=== PATIENT | female | born 1985 | race Caucasian/White ===

== ENCOUNTER 2017-08-07 14:34 | Emergency (ER) | payer MEDICAID ==
[~2017-08-07] VITALS: Ht 167.6 cm; Wt 147.9 kg
[2017-08-07] MEDS ORDERED: NKM (14:48)
[2017-08-07 14:53] VITALS: BP 165/91
[2017-08-07] MEDS ORDERED: Fluorescein Strips RIGHT EYE ONE ×2 (15:15→15:30)
[2017-08-07] MEDS ORDERED: Tetracaine 0.5% Opth 4ml Soln RIGHT EYE ONE (15:15)
--- NOTE | 2017-08-07 15:18 | Emergency Room Report ---
History of Present Illness General Chief Complaint: Multiple Trauma/Fall Source: Patient Present Illness HPI 32 yo female patient presents to ER s/p fall complaining of left foot and right eye pain. Patient reports fall was mechanical while going down steps at home; denies LOC, dizziness, syncope. Patient complains of left foot foot pain. States she rested, iced, and took motrin for pain symptoms with mild relief. Patient states she is able to ambulate. Patient also states when she fell a "plant stick hit [her] in the eye". Patient complains of decreased vision in both eyes. States she has history of difficulty objects at a distance. Patient complains of pain foreign body sensation in right eye. Patient denies use of contact lenses or glasses. Patient denies loss of vision, fever, chest pain, shortness of breath, nausea, vomiting. Patient states she is up to date on tetanus vaccination. Allergies: Coded Allergies: No Known Allergies (Unverified , 08/07/17) Patient History Social History: Denies: smoking, alcohol use, drug use Last Menstrual Period: 1 week ago Immunizations: UTD Reviewed Nursing Documentation: PMH: Agreed, PSxH: Agreed Nursing Documentation-PMH Past Medical History: No History, Except For Review of Systems All Other Systems: negative except mentioned in HPI Physical Exam Vital Signs Date Time Temp Pulse Resp B/P (MAP) Pulse Ox O2 Delivery O2 Flow Rate FiO2 08/07/17 14:42 97.9 80 16 165/91 99 Room Air Sp02 EP Interpretation: reviewed, normal General Appearance: no apparent distress, alert, GCS 15, non-toxic Eyes: right eye fluoroscene uptake - 3 mm abrasion in 2 o'clock position extending outward from pupil, right eye Scleral Injection - medially, bilateral eye PERRL, bilateral eye EOMI, bilateral eye visual acuity - 20/100 ENT: hearing grossly normal, normal pharynx, no angioedema, normal voice, TMs + canals normal, uvula midline Neck: full range of motion, supple/symm/no masses Respiratory: chest non-tender, lungs clear, normal breath sounds, no respiratory distress, no wheezing, speaking full sentences Cardiovascular #1: regular rate, rhythm Cardiovascular #2: 2+ dorsalis pedis (R), 2+ dorsalis pedis (L) Musculoskeletal: digits/nails normal, normal range of motion - able to wiggle toes, plantar flexion and is in a, decreased range of motion - secondary to pain with ankle dorsiflexion and eversion, swelling - mild swelling along first MTP of left foot, other - NVI, tender - along first MTP Neurologic: alert, oriented x3, responsive, sensory intact, abnormal gait - secondary to pain Psychiatric: mood/affect normal Skin: normal color, no rash, warm/dry, well hydrated, other - right upper eyelid: 1-2cm linear ecchmosis along medial aspect of eyelid, TTP Medical Decision Making PA Attestation Dr. Rodriguez is my supervising Physician whom patient management has been discussed with. Diagnostic Impression: Primary Impression: Corneal abrasion, right Additional Impression: Left foot pain ER Course Pt. presents to the ED c/o right eye pain and left ankle pain. Ddx considered but are not limited to FB in eye, corneal abrasion, corneal ulcer , subconjunctival hemorrhage. Ddx considered but are not limited to fracture, sprain, strain, contusion. VA 20/100 in eyes bilaterally per nursing report. ORDERS: Ophthalmic Tetracaine. Fluorescein stain of both eyes performed. 1-2mm abrasion seen in right eye at 2 o'clock position. ED INTERVENTIONS: An x-ray of the left foot was ordered, results show no acute fracture, per the preliminary reading. [place] wrap was provided to the left foot. The affected foot was checked afterwards by me showing good alignment and support with distal neurovascular functioning intact. Crutches provided per patient request. ER COURSE -Dr. Hernandez called for Ophtho consult. Dr. Hernandez reports to ER at 1600PM -Dr. Hernandez confirmed appearance of corneal abrasion in right eye. -Visual acuity performed by Dr. Hernandez. Recommended followup for evaluation for prescription glasses to improve vision. - Ophthalmology treatment and follow-up plan discussed with patient. Patient understands and agrees to treatment. -Ortho treatment and plan discussed with patient. Patient understands and agrees to treatment. DISCHARGE: - Rx provided for Vigamox and Erythromycin ointment per Dr. Hernandez consultation. Use as directed. - Rx provided for Acetaminophen for pain symptoms At this time pt. is stable for d/c to home. Will provide printed patient care instructions and any necessary prescriptions. Care plan and follow up instructions have been discussed with the patient prior to discharge Follow-up with pricing supervisor at schedule appointment on Wednesday. Contact card for Dr. Hernandez provided to patient. Take medications as directed. Patient instructed to follow with primary care provider in 3 - 5 days and to request further orthopedic follow-up. Patient instructed on RICE method: rest, ice, compression, elevation. Patient instructed to WBAT. Take medications as directed. Patient questions asked and answered. ER precautions given, patient instructed to return to ER immediately for any new or worsening of symptoms. Last Vital Signs Date Time Temp Pulse Resp B/P (MAP) Pulse Ox O2 Delivery O2 Flow Rate FiO2 08/07/17 14:53 97.9 86 16 165/91 99 Room Air Disposition: HOME, SELF-CARE Condition: Stable Scripts Erythromycin Base (ERYTHROMYCIN*) 3.5 Gm Oint...g. 1 APPLIC RIGHT EYE QHS, #3.5 GM 0 Refills Prov: Elvis Shea 08/07/17 Moxifloxacin HCl (Vigamox) 3 Ml Drops 1 DROP RIGHT EYE q2 hours while awake for 2 Days, #3 ML 0 Refills Prov: Elvis Shea 08/07/17 Acetaminophen* (ACETAMINOPHEN 325MG TABLET*) 325 Mg Tablet 650 MG ORAL Q6H Y for For Pain for 7 Days, #30 TAB Prov: Elvis Shea 08/07/17 Additional Instructions: Followup with primary care provider in 3 -5 days for ankle pain. Followup with pricing supervisor Wednesday at schedule at 1PM appointment. Contact information for Dr. Hernandez provided. Take medications as directed. Patient questions asked and answered. ER precautions given, patient instructed to return to ER immediately for any new or worsening of symptoms. Elvis Shea Aug 07, 2017 15:18
[2017-08-07] MEDS ORDERED: ERYTHROMYCIN3.5 GM RIGHT EYE (16:42)
[2017-08-07] MEDS ORDERED: ACETAMINOPHEN325 M1 ORAL (16:42)
[2017-08-07] MEDS ORDERED: VIGAMOX1 DROP RIGHT EYE (16:42)
--- NOTE | 2017-08-07 16:51 | Consultation ---
History of Present Illness General Date patient seen: Aug 07, 2017 Time patient seen: 16:37 Chief Complaint: Multiple Trauma/Fall and right eye pain from injury last night Referring physician: DR. Rodriguez Reason for Consultation: OD pain Present Illness HPI Fell last night and hit od on stick; c/o pain OD Allergies: Coded Allergies: No Known Allergies (Unverified , 08/07/17) Medication History Scheduled No Known Medications* (NKM - No Known Medications*), 0 ., (Reported) Patient History History Provided By: Patient Healthcare decision maker Resuscitation status Advanced Directive on File Physical Exam HEENT: PERRL, EOMI, other - 32 year old female hit OD last night. UCVA 20/100+ 1 OD, 20/70-1 OS No pinhole available in ER. R cornea has 2 mm abrasion extending 5 mm onto conj at 2:00. FT nl OU. EOM full; mild injection nasally OD. Yelena neg. Last 24 Hour Vital Signs Date Time Temp Pulse Resp B/P (MAP) Pulse Ox O2 Delivery O2 Flow Rate FiO2 08/07/17 14:53 97.9 86 16 165/91 99 Room Air 08/07/17 14:42 97.9 80 16 165/91 99 Room Air Height (Feet): 5 Height (Inches): 6.00 Weight (Pounds): 326 Assessment/Plan Assessment/Plan R corneal and conjunctival abrasion Plan: Vigamox oph ismael. 1 drop OD q2h [place] Erythromycin oph oint to OD hs Return to ER if symptoms worsen See me in my office in 2 days at 1 pm. Pt understands instructions and will return in 2 days. LUIS JUAREZ M.D. Aug 07, 2017 16:51
[2017-08-07 17:20] VITALS: BP 158/87
[2017-08-07 17:36] VITALS: BP 158/87
--- NOTE | 2017-08-08 08:59 | Diagnostic Imaging Report ---
Indication: Pain Technique: XRAY Foot Complete L Comparison: None Findings: There is no acute fracture or dislocation. There is mild hallux valgus. Otherwise joint spaces and anatomic alignment are preserved. No focal soft tissue abnormality appreciated. No radiopaque foreign body seen. Impression: No acute fracture or dislocation.
== END 2017-08-07 17:37 | disposition home or self-care (01) ==
LOC: EMR 15:16
DX: S05.01XA Injury of conjunctiva and corneal abrasion without foreign body, right eye, initial encounter (principal); M25.572 Pain in left ankle and joints of left foot; W10.9XXA Fall (on) (from) unspecified stairs and steps, initial encounter; Y93.9 Activity, unspecified; Y92.009 Unspecified place in unspecified non-institutional (private) residence as the place of occurrence of the external cause; M20.12 Hallux valgus (acquired), left foot
CPT/HCPCS: 29540; 99284

== ENCOUNTER → 2017-12-02 | Emergency (ER) | payer MEDICAID ==
[~2017-12-02] VITALS: Ht 167.6 cm; Wt 179.2 kg
[~2017-12-02] MED LIST: ACETAMINOPHEN325 M1 ORAL; ERYTHROMYCIN3.5 GM RIGHT EYE; HYDROcodone/Acetamin 10/325 tab ORAL ONE; NKM; NORCO 7.5-3251 EACH ORAL; VIGAMOX1 DROP RIGHT EYE
[2017-12-02 13:14] LABS: APPEARANCE,URINE CLEAR; BILIRUBIN, URINE NEGATIVE (NEGATIVE); COLOR,URINE PALE YELLOW; GLUCOSE, URINE (UA) NEGATIVE (NEGATIVE); KETONES,URINE NEGATIVE (NEGATIVE); LEUKOCYTE ESTERASE ,URINE NEGATIVE (NEGATIVE); NITRITE,URINE NEGATIVE (NEGATIVE); PH,URINE 7 (4.5-8.0); PROTEIN,URINE NEGATIVE (NEGATIVE); UROBILINOGEN,URINE NORMAL MG/DL (0.0-1.0)
[2017-12-02 13:30] VITALS: BP 160/75
[2017-12-02 13:39] LABS: BASOPHILS % (AUTO) 0.9 % (0.0-2.0); EOSINOPHILS % (AUTO) 2.5 % (0.0-3.0); HEMATOCRIT 36.1 % (37.0-47.0); HEMOGLOBIN 11.8 G/DL (12.0-16.0); LYMPHOCYTES % (AUTO) 24.2 % (20.0-45.0); MEAN CORPUSCULAR VOLUME 81 FL (80-99); MONOCYTES % (AUTO) 4.5 % (1.0-10.0); PLATELET COUNT 240 K/UL (150-450); RED BLOOD COUNT 4.47 M/UL (4.20-5.40); RED CELL DISTRIBUTION WIDTH 12.5 % (11.6-14.8); WHITE BLOOD COUNT 9.6 K/UL (4.8-10.8)
[2017-12-02 13:56] LABS: ANION GAP 7 mmol/L (5-15); BLOOD UREA NITROGEN 12 mg/dL (7-18); CALCIUM 8.7 MG/DL (8.5-10.1); CARBON DIOXIDE 27 MMOL/L (21-32); CHLORIDE 105 MMOL/L (98-107); CREATININE 0.8 MG/DL (0.55-1.30); POTASSIUM 4.3 MMOL/L (3.5-5.1); SODIUM 139 MMOL/L (136-145)
[2017-12-02 14:01] LABS: ALANINE AMINOTRANSFERASE 38 U/L (12-78); ALBUMIN 3.2 G/DL (3.4-5.0); ALBUMIN/GLOBULIN RATIO 0.8 (1.0-2.7); ALKALINE PHOSPHATASE 73 U/L (46-116); ASPARTATE AMINO TRANSFERASE 27 U/L (15-37); BILIRUBIN,TOTAL 0.3 MG/DL (0.2-1.0)
--- NOTE | 2017-12-02 16:25 | Diagnostic Imaging Report ---
Indication:Lower abdominal and pelvic pain. History of dermoid tumor removed surgically. Technique: Grayscale and duplex Doppler imaging of the pelvis performed utilizing a transabdominal scan and endovaginal scan. Comparison: None Findings: The study is limited because of the large body habitus. Neither ovary is identified. In the left adnexa there is an unusual appearing hypoechogenic and shadowing focus. This could be a dermoid tumor. Further evaluation with CT is recommended. The abnormal region measures a about 3 to 4 cm. There is also a second area measuring 2.8 x 4 cm that is hypoechoic c in the fundal region extending into the left adnexal region possibly a fibroid. Nabothian cysts are present in the cervix. Endometrium is not well evaluated but as visualized appears normal thickness measuring between 4 and 5 mm. No obvious free fluid. The uterus measures 8 x 5 x 4.4 cm. IMPRESSION: Limited evaluation due to body habitus. Heterogeneous shadowing focus in the left adnexa. Consider dermoid tumor. Further evaluation recommended with CT Hypoechoic mass in the left adnexal region possibly a subserosal uterine fibroid versus ovarian mass. Evaluation with CT recommended.
--- NOTE | 2017-12-02 16:43 | Emergency Room Report ---
History of Present Illness General Chief Complaint: Female Urogenital Problems Source: Patient Present Illness HPI 32 YO Female Pt. presents to the ED c/o vaginal bleeding: x 1 month with moderate increase x 2 weeks. pt. reports going through 3 tampons per hour. She denies . pt. 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 pt. states that she has tried multiple therapies. Including hormones as well as Motrin. Patient states that she has been taking up to 1200 mg of ibuprofen every 6 hours. She denies urinary frequency, Urgency. Denies nausea, vomiting, fevers, chills. Denies night sweats or significant changes in weight. Denies vaginal discharge other than bleeding. pt. reports passage of many large sized clots. She reports increased fatigue. Allergies: Coded Allergies: No Known Allergies (Unverified , 08/07/17) Patient History Past Medical History: see triage record Past Surgical History: none Pertinent Family History: none Now: No Reviewed Nursing Documentation: PMH: Agreed; PSxH: Agreed Nursing Documentation-PMH Past Medical History: No Stated History Review of Systems All Other Systems: negative except mentioned in HPI Physical Exam Vital Signs Date Time Temp Pulse Resp B/P (MAP) Pulse Ox O2 Delivery O2 Flow Rate FiO2 12/02/17 12:47 98.2 82 16 160/75 97 Room Air 98.2 Sp02 EP Interpretation: reviewed, normal General Appearance: alert, GCS 15, non-toxic, moderate distress, obese Head: normocephalic, atraumatic Eyes: bilateral eye normal inspection, bilateral eye PERRL ENT: hearing grossly normal, normal voice Neck: full range of motion Respiratory: chest non-tender, lungs clear, normal breath sounds, no rhonchi, no wheezing, speaking full sentences Cardiovascular #1: regular rate, rhythm, normal capillary refill Gastrointestinal: normal bowel sounds, non tender, soft, overweight Genitourinary: normal inspection, no CVA tenderness, adnexa normal, other - Pelvic Exam deferred by pt. describing tenderness. Musculoskeletal: back normal, gait/station normal, normal range of motion, non- tender Neurologic: alert, oriented x3, responsive, motor strength/tone normal, sensory intact, normal gait, speech normal, grossly normal Psychiatric: judgement/insight normal Skin: normal color, no rash, warm/dry, well hydrated Lymphatic: no adenopathy Medical Decision Making PA Attestation Dr. Maravilla is my supervising Physician whom patient management has been discussed with. Diagnostic Impression: Primary Impression: Vaginal bleeding, abnormal Additional Impression: Metrorrhagia ER Course 32 YO Female Pt. presents to the ED c/o vaginal bleeding: x 1 month with moderate increase x 2 weeks. pt. reports going through 3 tampons per hour. She denies . pt. 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 pt. states that she has tried multiple therapies. Including hormones as well as Motrin. Patient states that she has been taking up to 1200 mg of ibuprofen every 6 hours. She denies urinary frequency, Urgency. Denies nausea, vomiting, fevers, chills. Denies night sweats or significant changes in weight. Denies vaginal discharge other than bleeding. pt. reports passage of many large sized clots. She reports increased fatigue. Ddx considered but are not limited to: Fibroid, ectopic , Malignancy, Spontaneous , , DUB, anemia, missed miscarriage just to name a few. Vital signs: are WNL, pt. is afebrile Pelvic Exam: Deferred by Pt. - Obese ORDERS: CBC: normal hgb/hct -CMP: unremarkable - Pelvic US Complete -UA: RBC's and occult blood consistent with hPI -Urine Hcg: Negative ED INTERVENTIONS: [place] PO D/w Pt. the results of her Pelvic US and DISCHARGE: At this time pt. is stable for d/c to home. Will provide printed patient care instructions, and any necessary prescriptions. Care plan and follow up instructions have been discussed with the patient prior to discharge. Labs Test 12/02/17 12:50 12/02/17 13:20 Urine Color Pale yellow Urine Appearance Clear Urine pH 7 (4.5-8.0) Urine Specific [place] 1.010 (1.005-1.035) Urine Protein Negative (NEGATIVE) Urine Glucose (UA) Negative (NEGATIVE) Urine Ketones Negative (NEGATIVE) Urine Occult Blood 4+ (NEGATIVE) Urine Nitrite Negative (NEGATIVE) Urine Bilirubin Negative (NEGATIVE) Urine Urobilinogen Normal MG/DL (0.0-1.0) Urine Leukocyte Esterase Negative (NEGATIVE) Urine RBC 15-20 /HPF (0 - 2) Urine WBC 0-2 /HPF (0 - 2) Urine Squamous Epithelial Cells Few /LPF (NONE/OCC) Urine Bacteria Few /HPF (NONE) Urine HCG, Qualitative Negative (NEGATIVE) White Blood Count 9.6 K/UL (4.8-10.8) Red Blood Count 4.47 M/UL (4.20-5.40) Hemoglobin 11.8 G/DL (12.0-16.0) Hematocrit 36.1 % (37.0-47.0) Mean Corpuscular Volume 81 FL (80-99) Mean Corpuscular Hemoglobin 26.3 PG (27.0-31.0) Mean Corpuscular Hemoglobin Concent 32.5 G/DL (32.0-36.0) Red Cell Distribution Width 12.5 % (11.6-14.8) Platelet Count 240 K/UL (150-450) Mean Platelet Volume 6.1 FL (6.5-10.1) Neutrophils (%) (Auto) 68.0 % (45.0-75.0) Lymphocytes (%) (Auto) 24.2 % (20.0-45.0) Monocytes (%) (Auto) 4.5 % (1.0-10.0) Eosinophils (%) (Auto) 2.5 % (0.0-3.0) Basophils (%) (Auto) 0.9 % (0.0-2.0) Sodium Level 139 MMOL/L (136-145) Potassium Level 4.3 MMOL/L (3.5-5.1) Chloride Level 105 MMOL/L (98-107) Carbon Dioxide Level 27 MMOL/L (21-32) Anion Gap 7 mmol/L (5-15) Blood Urea Nitrogen 12 mg/dL (7-18) Creatinine 0.8 MG/DL (0.55-1.30) Estimat Glomerular Filtration Rate > 60 mL/min (>60) Glucose Level 89 MG/DL (74-106) Calcium Level 8.7 MG/DL (8.5-10.1) Total Bilirubin 0.3 MG/DL (0.2-1.0) Aspartate Amino Transf (AST/SGOT) 27 U/L (15-37) Alanine Aminotransferase (ALT/SGPT) 38 U/L (12-78) Alkaline Phosphatase 73 U/L (46-116) Total Protein 7.4 G/DL (6.4-8.2) Albumin 3.2 G/DL (3.4-5.0) Globulin 4.2 g/dL Albumin/Globulin Ratio 0.8 (1.0-2.7) CT/MRI/US Diagnostic Results CT/MRI/US Diagnostic Results : Imaging Test Ordered: Pelvic US Impression "Limited evaluation due to body habitus. Shadowing focus in the left adnexa considered dermoid tumor further evaluation recommended. Hypoechoic mass in the left adnexal region possibly a subserosal uterine fibroid versus ovarian mass."Per official radiology report- Please see report for specific details. Last Vital Signs Date Time Temp Pulse Resp B/P (MAP) Pulse Ox O2 Delivery O2 Flow Rate FiO2 12/02/17 13:53 98.2 12/02/17 13:30 83 16 160/75 97 Room Air Disposition: HOME, SELF-CARE Condition: Stable Scripts Hydrocodone Bit/Acetaminophen 7.5-325* (NORCO 7.5-325*) 1 Each Tablet 1 TAB ORAL Q6H PRN for For Pain, #10 TAB 0 Refills Prov: Leah Hickey 12/02/17 Referrals: NOT CHOSEN IPA/MD,REFERRING (PCP) Patient Instructions: Dysmenorrhea, [id number], Ovarian Cyst Additional Instructions: Take medications as directed. Follow up with a Primary Care Provider in 3-5 days, even if your symptoms have resolved. --Please review list of primary care clinics, if you do not already have a primary care provider Return sooner to ED if new symptoms occur, or current symptoms become worse. Do not drink alcohol, drive, or operate heavy machinery while taking Opiate Pain Medications as this may cause drowsiness. - Please note that this Emergency Department Report was dictated using [employer] painter technology software, occasionally this can lead to erroneous entry secondary to interpretation by the dictation equipment. Leah Hickey December 02, 2017 16:43
== END | disposition home or self-care (01) ==
LOC: EMR 13:05
DX: N93.9 Abnormal uterine and vaginal bleeding, unspecified (principal); N92.1 Excessive and frequent menstruation with irregular cycle
CPT/HCPCS: 36415; 76830; 76856; 80053; 81003; 81025; 85025; 99284